=== PATIENT | female | born 1970 | race Two or more races ===

== ENCOUNTER 2025-07-15 20:17 | Emergency (ER) | payer MEDICAID, OTHER ==
[~2025-07-15] VITALS: Ht 170.2 cm; Wt 86.0 kg
--- NOTE | 2025-07-15 20:59 | ED.PDOC ---
History of Present Illness HPI Comments 55-year-old female presents with a chief complaint of right shoulder muscle pain x 3 weeks. Patient states that for the past 3 weeks she has been having pain that is localized to her right shoulder blade. Patient is able to move her extremity and states that the area is hard to touch. Patient reports that she sleeps on her side. Patient denies any trauma or injuries to the area. Chief Complaint: Upper Extremity Time Seen by MD: 20:48 Primary Care Provider: NONE Reviewed Notes: Nurses Notes, Medications, Allergies Allergies: Coded Allergies: Blue Dye #2 ([place]igo [place]) (Verified Allergy, Unknown, 07/15/25) Oseltamivir (Verified Allergy, Unknown, 07/15/25) Home Meds No Active Prescriptions or Reported Meds Information Source: Patient Mode of Arrival: Ambulatory Severity: Moderate Timing: Days, Weeks Duration: Since onset Prehospital treatment: None Past Medical History PAST MEDICAL HISTORY: Asthma Surgical History: Denies all surgeries Family History Family History: Unobtainable Social History Smoker: Cigarettes Alcohol: Rarely Drugs: Marijuana Lives In: Home Constitutional: denies: chills, diaphoresis, fatigue, fever, malaise, sweats, weakness, others EENTM: denies: blurred vision, double vision, ear bleeding, ear discharge, ear drainage, ear pain, ear ringing, eye pain, eye redness, hearing loss, mouth pain, mouth swelling, nasal discharge, nose bleeding, nose congestion, nose pain, photophobia, tearing, throat pain, throat swelling, voice changes, others Respiratory: denies: cough, hemoptysis, orthopnea, SOB at rest, shortness of breath, SOB with excertion, stridor, wheezing, others Cardiovascular: denies: chest pain, dizzy spells, diaphoresis, Dyspnea on exertion, edema, irregular heart beat, left arm pain, lightheadedness, palpitations, PND, syncope, others Gastrointestinal: denies: abdomen distended, abdominal pain, blood streaked bowels, constipated, diarrhea, dysphagia, difficulty swallowing, hematemesis, melena, nausea, poor appetite, poor fluid intake, rectal bleeding, rectal pain, vomiting, others Genitourinary: denies: abnormal vagina bleeding, burning, dyspareunia, dysuria, flank pain, frequency, hematuria, incontinence, pain, , vagina discharge, urgency, others Neurological: denies: dizziness, fainting, headache, left sided numbness, left sided weakness, numbness, paresthesia, pre-existing deficit, right sided num bness, right sided weakness, seizure, speech problems, tingling, tremors, weakness, others Musculoskeletal: reports: muscle pain; denies: back pain, gout, joint pain, joint swelling, muscle stiffness, neck pain, others Integumetry: denies: bruises, change in color, change in hair/nails, dryness, laceration, lesions, lumps, rash, wounds, others Allergic/Immunocompromised: denies: Difficulty Healing, Frequent Infections, Hi ves, Itching, others Hematologic/Lymphatic: denies: anemia, blood clots, easy bleeding, easy bruising, swollen glands, others Endocrine: denies: excessive hunger, excessive sweating, excessive thirst, excessive urination, flushing, intolerance to cold, intolerance to heat, unexplained weight gain, unexplained weight loss, others Psychiatric: denies: anxiety, bipolar disorder, depression, hopeless, panic disorder, schizophrenia, sleepless, suicidal, others All Other Systems: Reviewed and Negative Physical Exam General Appearance: No Apparent Distress, Normal HEENT: Normal ENT Inspection, Pharynx Normal, TMs Normal Neck: Full Range of Motion, Non-Tender, Normal, Normal Inspection Respiratory: Chest Non-Tender, Lungs Clear, No Accessory Muscle Use, No Respiratory Distress, Normal Breath Sounds Cardiovascular: No Edema, No JVD, No Murmur, No Gallop, Normal Peripheral Pulses, Regular Rate/Rhythm Breast Exam: Deferred Gastrointestinal: No Organomegaly, Non Tender, No Pulsatile Mass, Normal Bowel Sounds, Soft Genitalia: Deferred Pelvic: Deferred Rectal: Deferred Extremities: No calf tenderness, Normal capillary refill, Normal inspection, Normal range of motion, Non-tender, No pedal edema Musculoskeletal : Apperance: Normal Neurologic: Alert, material man II-XII nml as Tested, No Motor Deficits, Normal Affect, Normal Mood, No Sensory Deficits Cerebellar Function: Normal Reflexes: Normal Skin: Dry, Normal Color, Warm Lymphatic: No Adenopathy Was a procedure done? Was a procedure done?: No Differential Dx Considerations may include: Cervical radiculopathy, deltoid strain, torn rotator cuff X-Ray, Labs, Meds, VS Vital Signs Date Time Temp Pulse Resp B/P (MAP) Pulse Ox O2 Delivery O2 Flow Rate FiO2 07/15/25 20:19 98.3 99 18 162/95 95 98.3 Current Medications Medications (Trade) Dose Ordered Sig/Starla Route Start Time Stop Time Status Last Admin Methylprednisolone Sodium Succinate (Solu Medrol) 125 mg ONCE ONCE IM 07/15/25 21:15 07/15/25 21:16 DC 07/15/25 21:29 Ketorolac Tromethamine (Toradol Injection) 30 mg ONCE ONCE IM 07/15/25 21:15 07/15/25 21:16 DC 07/15/25 21:30 X-Ray, Labs, Meds, VS Comment Imaging was reviewed by this provider, there is no obvious pathological or acute disease process. Pending radiology review Labs were reviewed by this provider, no abnormalities Vital signs reviewed by this provider, clinically stable Time of 1ST Reevaluation: 21:18 Reevaluation 1ST: Unchanged Patient Education/Counseling: Diagnosis, Treatment, Need For Follow Up (Follow up with PCP in the next 2-4 days. Return to emergency department in the next 24-48 hours if symptoms worsen.) Family Education/Counseling: Need For Follow Up, No Family Present SEPSIS Sepsis Screen Date sepsis recognized/suspect: Jul 15, 2025 Time Sepsis recognized/suspect: 2019 Recent Procedure: No On Antibiotic Therapy: No Respiratory Rate >20: No Heart Rate >90: Yes Temp<36 C (96.8 F) or >38.3 C: No SBP <90 or MAP <65 mmHG: No New Acute Mental Status Change: No Is the patient on CPAP, BIPAP,: No Vital Signs Date Time Temp Pulse Resp B/P (MAP) Pulse Ox O2 Delivery O2 Flow Rate FiO2 07/15/25 20:19 98.3 99 18 162/95 95 98.3 Medications Medications Dose Ordered Sig/Starla Route Start Time Stop Time Status Last Admin Dose Admin Ketorolac Tromethamine 30 mg ONCE ONCE IM 07/15/25 21:15 07/15/25 21:16 DC 07/15/25 21:30 Methylprednisolone Sodium Succinate 125 mg ONCE ONCE IM 07/15/25 21:15 07/15/25 21:16 DC 07/15/25 21:29 Departure 1 Departure Time of Disposition: 22:05 Impression: Primary Impression: Trapezius muscle spasm Disposition: HOME / SELF CARE / HOMELESS Condition: Fair e-Prescriptions Ibuprofen Micronized (Ibuprofen) 800 Mg Tab 800 MG PO TID PRN, #40 TAB Prov: KIRK ANSARI 07/15/25 Cyclobenzaprine Hcl (Cyclobenzaprine Hcl) 5 Mg Tab 1 TAB PO TID, #30 TAB Prov: KIRK ANSARI 07/15/25 Discharged With: Self Critical Care Note Critical Care Time?: No Stability Stability form required: No Heart Score Heart Score: Heart Score Response (Comments) Value History N/A 0 EKG N/A 0 Age N/A 0 Risk Factors N/A 0 Troponin N/A 0 Total 0 I personally scribed for KIRK ANSARI ([email or web address]) on 07/15/25 at 20:59. Electronically submitted by Janusz Polanco ([email or web address]). KIRK ANSARI Jul 15, 2025 20:59
[2025-07-15] MEDS: methylPREDNISolone SOD SUCC 125 MG/2 ML VL IM ONE (21:29)
[2025-07-15] MEDS: KETOROLAC TROMETH 30 MG/ML 1ML VIAL IM ONE (21:30)
[2025-07-15] MEDS ORDERED: IBUP-1455 PO (22:07)
[2025-07-15] MEDS ORDERED: CYCL-837 PO (22:07)
[2025-07-15 22:25] VITALS: BP 151/85; PULSE 89; RESP 16; TEMP 97.7; O2SAT 96
== END 2025-07-15 22:56 | disposition home or self-care (01) ==
LOC: ER 20:17
DX: M62.830 Muscle spasm of back (principal); F12.90 Cannabis use, unspecified, uncomplicated; F10.90 Alcohol use, unspecified, uncomplicated; F17.210 Nicotine dependence, cigarettes, uncomplicated; Z91.09 Other allergy status, other than to drugs and biological substances; Y90.9 Presence of alcohol in blood, level not specified
CPT/HCPCS: 96372; 99284; J1885; J2919